=== PATIENT | male | born 1995 | race African-American/Black ===

== ENCOUNTER 2018-12-25 03:25 | Emergency (ER) | payer OTHER ==
[2018-12-25] MEDS ORDERED: Lidocaine 1% w/Epinephrine 1:100K 20 ML VIAL ONE (04:48)
[2018-12-25] MEDS ORDERED: Adacel (T-DAP) 0.5 ML SYRINGE ONE (05:53)
[2018-12-25] MEDS ORDERED: HYDROcodone/Acetaminophen 10/325 mg Tablet ONE (05:53)
--- NOTE | 2018-12-25 08:06 | CT ---
PRELIMINARY REPORT/[facility]/EMERGENTY AFTER-HOURS PROCEDURE CT Head Without Contrast EXAM DATE/TIME: 12/25/2018 5:23 AM CLINICAL HISTORY: 23 years old, male; Injury or trauma; Injury history: Work injury; Work related; Initial encounter; L aceration; Without residual foreign body; Scalp; Patient HX: M23 presents to ed with C/O head injury. 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 PT has a bleeding con trolled lac to forehead with pressure dressing. PT denies any loc, neck pain, dizziness, or any other complaints TECHNIQUE: Axial computed tomography images of the head/brain without contrast. COMPARISON: No relevant prior studies available. FINDINGS: Brain: Normal. No hemorrhage. No significant white matter disease. No edema. Ventricles: Normal. No ventriculomegaly. Bones/joints: Normal. No acute fracture. Sinuses: Normal as visualized. No acute sinusitis. Mastoid air cells: Normal as visualized. No mastoid effusion. Soft tissues: Anterior left scalp soft tissue injury with skin opal in place. IMPRESSION: 1. No acute intracranial abnormality. 2. Scalp soft tissue injury. Thank you for allowing us to participate in the care of your patient. Dictated and Authenticated by: Orlando Rincon MD 12/25/2018 5:30 AM Central Time ([place] & [place]) FINAL REPORT EMERGENT AFTER HOURS CT OF BRAIN PEFORMED WITHOUT CONTRAST ENHANCEMENT: HISTORY: Injury at work. Was hit with a piece of wood. FINDINGS: The ventricular and cisternal system is within normal limits. There are no signs of intracerebral he morrhage or extraaxial fluid collections. The mastoid air cells are clear. There is some mucosal ch reza in the left maxillary sinus. A left frontal scalp laceration is present. IMPRESSION: 1. No acute intracranial abnormalities. 2. This report is in agreement with the temporary report issued by [facility]. POS: [facility]
== END 2018-12-25 06:02 | disposition home or self-care (01) ==
LOC: ERS 03:25
DX: S01.01XA Laceration without foreign body of scalp, initial encounter (principal); W22.8XXA Striking against or struck by other objects, initial encounter
CPT/HCPCS: 12002; 70450; 90471; 90715; J2001

== ENCOUNTER 2021-07-23 19:00 | Emergency (ER) | payer OTHER ==
[2021-07-23] MEDS ORDERED: Ketorolac Tromethamine 30 MG/ML VIAL ONE (21:24)
[2021-07-23] MEDS ORDERED: Morphine 4 MG/ML VIAL ONE (21:24)
== END 2021-07-23 22:10 | disposition home or self-care (01) ==
LOC: ERS 19:00
DX: S83.92XA Sprain of unspecified site of left knee, initial encounter (principal); Y93.67 Activity, basketball; I10 Essential (primary) hypertension
CPT/HCPCS: 96372; J1885; J2270